=== PATIENT | male | born 1965 | race Two or more races ===

== ENCOUNTER → 2022-02-27 09:47 | Outpatient (BNVA) | payer OTHER, SELFPAY | PROVIDERS: Visit Provider Psychiatry & Neurology Neurology | DX: Z13.89 Encounter for screening for other disorder (principal) ==

== ENCOUNTER → 2022-06-04 14:50 | Outpatient (REF) | payer MEDICARE, SELFPAY | LOC: HO.SL 14:50 | PROVIDERS: Visit Provider Psychiatry & Neurology Neurology | DX: G47.33 Obstructive sleep apnea (adult) (pediatric) (principal); I10 Essential (primary) hypertension | CPT/HCPCS: 95806 ==